=== PATIENT | male | born 1965 | race Caucasian/White ===

== ENCOUNTER 2021-10-29 19:59 | Emergency (ER) | payer SELFPAY ==
[~2021-10-29] VITALS: Ht 175.3 cm; Wt 127.0 kg
[2021-10-29] MEDS ORDERED: TETANUS, DIPHTHERIA, PERTUSSIS VAC/PF 0.5ML (>10YR OLD) IM ONE (21:00)
[2021-10-29 21:42] VITALS: BP 174/100
[2021-10-29] MEDS ORDERED: KETOROLAC 60MG/2ML VIAL IM ONE (21:45)
== END 2021-10-30 01:19 | disposition home or self-care (01) ==
LOC: ER 19:59
DX: S01.81XA Laceration without foreign body of other part of head, initial encounter (principal); X58.XXXA Exposure to other specified factors, initial encounter; Y93.89 Activity, other specified; Y92.89 Other specified places as the place of occurrence of the external cause; Y99.8 Other external cause status; Z59.00 Homelessness unspecified
CPT/HCPCS: 90471; 90715; 96372; 99284; J1885; Z7610

== ENCOUNTER 2021-11-09 11:54 | Emergency (ER) | payer MEDICAID ==
[~2021-11-09] VITALS: Ht 170.2 cm; Wt 131.0 kg
[2021-11-09 12:34] VITALS: BP 175/99
== END 2021-11-09 16:50 | disposition home or self-care (01) ==
LOC: ER 11:54
DX: Z48.02 Encounter for removal of sutures (principal); I10 Essential (primary) hypertension
CPT/HCPCS: 99281